=== PATIENT | male | born 1960 | race Caucasian/White ===

== ENCOUNTER → 2021-11-09 10:48 | Outpatient (CLI) | payer OTHER, SELFPAY ==
--- NOTE | 2021-11-09 10:50 | DI.RAD.S_ITS ---
PROCEDURE: XR KUB INDICATIONS: Elevated PSA TECHNIQUE: One view of the abdomen acquired. COMPARISON: None. FINDINGS: Surgical changes and devices: None. Bowel: Bowel gas pattern is normal. Soft tissues: No suspicious abdominal calcifications. Visualized solid organ contours appear normal in size. Bones: No suspicious bony lesions. IMPRESSION: No acute process identified within the visualized portions of the abdomen and pelvis. Dictated by: Sreekanth Boyd [facility] Interpreted: Brett Nuno MD on 11/09/2021 at 11:04 Transcribed by: [facility] on 11/09/2021 at 11:05 Approved by: Brett Nuno M.D. on 11/09/2021 at 11:47
== END ==
PROVIDERS: Referring Provider Specialist; Visit Provider Specialist
DX: R97.20 Elevated prostate specific antigen [PSA] (principal)
CPT/HCPCS: 36415; 74018; G0103

== ENCOUNTER → 2022-01-13 08:59 | Outpatient (CLI) | payer OTHER, SELFPAY ==
[2022-01-13 10:03] LABS: Prostate Specific Antigen 2.53 ng/mL (0.10-4.00)
== END ==
PROVIDERS: PCP Family Medicine; Referring Provider Specialist; Visit Provider Specialist
DX: R97.20 Elevated prostate specific antigen [PSA] (principal)
CPT/HCPCS: 36415; 84153

== ENCOUNTER → 2023-02-01 13:22 | Outpatient (CLI) | payer OTHER, SELFPAY | PROVIDERS: PCP Family Medicine; Referring Provider Specialist; Visit Provider Specialist | DX: R97.20 Elevated prostate specific antigen [PSA] (principal) | CPT/HCPCS: 36415; 84153 ==

== ENCOUNTER → 2023-04-17 15:11 | Outpatient (CLI) | payer OTHER, SELFPAY ==
[2023-04-17 16:48] LABS: Prostate Specific Antigen 4.36 ng/mL (0.10-4.00)
== END ==
PROVIDERS: Referring Provider Specialist; Visit Provider Specialist
DX: R97.20 Elevated prostate specific antigen [PSA] (principal)
CPT/HCPCS: 36415; 84153

== ENCOUNTER → 2023-05-07 13:09 | Outpatient (CLI) | payer OTHER, SELFPAY ==
[2023-05-07 14:55] LABS: BUN Creatinine Ratio 14.3 (6-22); Blood Urea Nitrogen 15 mg/dL (9-20); Calcium 9.3 mg/dL (8.4-10.2); Carbon Dioxide 24 mmol/L (22-32); Chloride 106 mmol/L (98-107); Estimated Glomerular Filt Rate > 60 mL/min (>60); Glucose 99 mg/dL (80-110); HEMOLYSIS < 15 (0-50); Potassium 4.6 mmol/L (3.4-5.1); Sodium 139 mmol/L (137-145)
[2023-05-10 16:51] LABS: PSA Free % 12.5 % (.); PSA, Total 2.8 ng/mL (0.0-4.0)
== END ==
PROVIDERS: Referring Provider Specialist; Visit Provider Specialist
DX: Z01.812 Encounter for preprocedural laboratory examination (principal); R97.20 Elevated prostate specific antigen [PSA]
CPT/HCPCS: 36415; 80048; 84153; 84154

== ENCOUNTER → 2023-05-14 08:40 | Outpatient (CLI) | payer OTHER, SELFPAY ==
--- NOTE | 2023-05-14 08:41 | DI.MRI.S_ITS ---
PROCEDURE: MR PELVIS WO/W CON INDICATIONS: elevated PSA TECHNIQUE: Coronal HASTE, axial T1 FSE with fat saturation, 3-plane nonbreath-hold T2 FSE. After the administration of contrast, dynamic axial, delayed axial and coronal VIBE or 2-D FLASH with fat saturation through the pelvis. Optional diffusion weighted imaging and ADC may be performed. COMPARISON: [facility], CT, CT IVP, 01/30/2022, 15:07. FINDINGS: Image quality: Diffusion weighted images are degraded at the anterior gland however evaluation of the peripheral zone appears diagnostic. Prostate: Gland size is 5.6 x 4.0 x 5.2 cm; ellipsoid gland volume is 61 mL. Mild linear and wedge-shaped ADC hypointensities present within the prostate peripheral zone with indistinct T2 correlates (PI-RADS 2 findings). Enlargement of the prostate transitional zone with findings typical of benign prostatic hyperplasia. No large lesion strongly stands out against background parenchymal changes of BPH on T2 weighted images (PI-RADS 2 findings). Genitourinary system: Bladder wall thickness is normal. Distal ureters are non distended. Bowel and peritoneum: No significant free pelvic fluid. Inferior colon and small bowel loops are normal in caliber. Nodes and vessels: No pelvic or inguinal adenopathy by size criteria. Iliac vessels are normal in caliber. Bones: Marrow demonstrates unremarkable overall signal, without lesions to suggest metastases. IMPRESSION: 1. No large or highly suspicious focal prostate lesion to direct biopsy. There is enlargement of the prostate transitional zone with findings typical of benign prostatic hyperplasia, with prostate volume estimated at 61 cc. 2. No suspicious lymph nodes identified in the imaged pelvis. Dictated by: Leo Gomez M.D. on 05/14/2023 at 13:50 Approved by: Leo Gomez M.D. on 05/14/2023 at 14:05
== END ==
PROVIDERS: PCP Family Medicine; Referring Provider Specialist; Visit Provider Specialist
DX: R97.20 Elevated prostate specific antigen [PSA] (principal)
CPT/HCPCS: 72197; A9579

== ENCOUNTER → 2024-01-30 08:04 | Outpatient (CLI) | payer MEDICARE, OTHER, SELFPAY ==
[2024-01-30 09:55] LABS: Add Manual Diff / Slide Review NO; Basophils Absolute Auto 0 /uL (0-100); Basophils Percent Auto 0.5 % (0-2); Eosinophils Absolute Auto 100 /uL (0-450); Eosinophils Percent Auto 0.8 % (2-4); Hematocrit 40.7 % (41-53); Hemoglobin 14.3 g/dL (13.5-17.5); Lymphocytes Absolute Auto 2100 /uL (1100-4500); Lymphocytes Percent Auto 26.1 % (25-40); Mean Corpuscular HGB Conc 35.2 % (30-36); Mean Corpuscular Hemoglobin 30.3 PG (26-34); Mean Corpuscular Volume 86.1 fL (80-100); Monocytes Absolute Auto 400 /uL (0-900); Monocytes Percent Auto 4.6 % (3-14); Neutrophils Absolute Auto 5400 /uL (1500-7000); Platelet Count 182 X10^3/uL (150-400); Red Blood Cell Count 4.72 X10^6/uL (4.5-5.9); Red Cell Distribution Width 13.2 % (11.6-14.8)
[2024-01-30 10:19] LABS: Alanine Aminotransferase 34 IU/L (<50); Albumin 4.2 g/dL (3.5-5.0); Albumin Globulin Ratio 1.4 (1.0-2.8); Alkaline Phosphatase 58 U/L (38-126); Aspartate Aminotransferase 27 IU/L (17-59); BUN Creatinine Ratio 13.5 (6-22); Bilirubin Total 0.7 mg/dL (0.2-1.3); Blood Urea Nitrogen 12 mg/dL (9-20); Carbon Dioxide 26 mmol/L (22-32); Chloride 107 mmol/L (98-107); Estimated Glomerular Filt Rate > 60 mL/min (>60); Globulin 2.9 g/dL (1.7-4.1); Glucose 141 mg/dL (80-110); HEMOLYSIS < 15 (0-50); Potassium 4.1 mmol/L (3.4-5.1); Sodium 141 mmol/L (137-145); Total Protein 7.1 g/dL (6.3-8.2)
[2024-01-30 10:43] LABS: Prostate Specific Antigen 2.99 ng/mL (0.10-4.00)
[2024-01-30 10:45] LABS: TSH w/ Reflex to FT4 2.07 uIU/mL (0.47-4.68)
== END ==
PROVIDERS: PCP Family Medicine; Referring Provider Specialist; Visit Provider Specialist
DX: N40.1 Benign prostatic hyperplasia with lower urinary tract symptoms (principal); G25.0 Essential tremor; R55 Syncope and collapse; N13.8 Other obstructive and reflux uropathy; R31.29 Other microscopic hematuria
CPT/HCPCS: 36415; 80053; 84153; 84443; 85025

== ENCOUNTER 2024-02-20 14:28 | Emergency (ER) | payer OTHER, SELFPAY ==
[2024-02-20 14:40] VITALS: BP 139/66; PULSE 60; RESP 16; TEMP 36.5; O2SAT 100; BMI 27.8
--- NOTE | 2024-02-20 14:55 | ED_ITS ---
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 Bleeding was controlled with a Band-Aid. He has already spoken with employee health here at the hospital and they are getting labs drawn from the source patient. He does not desire any post exposure prophylaxis. He feels comfortable returning to work today. Source Patient MR Gunderson [id number]. Kenji Alvarez 02/20/2024. Related Data Home Medications Medication Instructions Recorded Confirmed atorvastatin 20 mg tablet 20 mg PO BEDTIME 11/08/21 02/07/24 dexlansoprazole 30 mg 30 mg PO DAILY 11/08/21 02/07/24 capsule,biphase delayed release (Dexilant) primidone 150 mg PO BEDTIME 11/08/21 02/07/24 Previous Rx's Medication Instructions Recorded tadalafil 5 mg tablet (Cialis) 5 mg PO DAILY PRN sexual activity 02/07/23 #60 tabs tamsulosin 0.4 mg capsule 0.8 mg (2 x 0.4 mg) PO BEDTIME 02/07/23 #180 caps Allergies Allergy/AdvReac Type Severity Reaction Status Date / Time Sulfa (Sulfonamide Allergy Verified 05/24/23 07:48 Antibiotics) Review of Systems <Nicole Kyle PA-C - Last Filed: 02/20/24 19:46> Review of Systems Narrative: See HPI Patient History <Nicole Kyle PA-C - Last Filed: 02/20/24 19:46> Medical History History of elevated PSA Microscopic hematuria BPH w urinary obs/LUTS Prostatitis Encounter for standard circumcision Squamous cell skin cancer Scarlet fever Essential tremor 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 Cervical radiculopathy Diverticulosis Hypertriglyceridemia Erosive esophagitis GERD (gastroesophageal reflux disease) Erectile dysfunction Prediabetes Hyperlipidemia Surgical History Hx of tonsillectomy H/O inguinal hernia repair Family History Mother Cataract Dementia Depression Hypertension Mitral valve prolapse Father Hypertension Coronary artery disease Social History marital status: unmarried,single 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 Well-developed patient, in mild distress. HEAD: Atraumatic. Normocephalic. EYES: Pupils equal round and reactive. Extraocular motions intact. No scleral icterus. No injection or drainage. ENT: Nose without bleeding, purulent drainage. Airway patent. NECK: Trachea midline. Non tender CARDIOVASCULAR: Regular rate and rhythm RESPIRATORY: No increased work of breathing or respiratory distress EXTREMITIES: On the pad of the right index finger there is a small stellate laceration that is superficial proximally 4 mm in size with bleeding controlled. Range of motion of the affected finger is intact. Moving all extremities, normal gait NEURO: AOx3. SKIN: No rash or erythema of visible areas Initial Vital Signs Initial Vital Signs: Vital Signs Temperature 97.7 F 02/20/24 14:40 Pulse Rate 60 02/20/24 14:40 Respiratory Rate 16 02/20/24 14:40 Blood Pressure 139/66 02/20/24 14:40 Pulse Oximetry 100 02/20/24 14:40 Oxygen Delivery Method Room Air 02/20/24 14:40 <Shyla Collado MD - Last Filed: 02/22/24 20:35> Initial Vital Signs Initial Vital Signs: Vital Signs Temperature 97.7 F 02/20/24 14:40 Pulse Rate 60 02/20/24 14:40 Respiratory Rate 16 02/20/24 14:40 Blood Pressure 139/66 02/20/24 14:40 Pulse Oximetry 100 02/20/24 14:40 Oxygen Delivery Method Room Air 02/20/24 14:40 Course <Nicole Kyle PA-C - Last Filed: 02/20/24 19:46> Orders Ordered: ED Orders 02/20/24 15:20 Alanine Aminotransferase Stat HIV 1 & 2 Ab/Ag 4th Gen Combo Stat Hep C Virus Ab w/Reflex Quant Stat Vital Signs Vital signs: Vital Signs - 8 hr 02/20/24 14:40 Temperature 97.7 F Pulse Rate 60 Respiratory Rate 16 Blood Pressure 139/66 Pulse Oximetry 100 Oxygen Delivery Method Room Air <Shyla Collado MD - Last Filed: 02/22/24 20:35> Orders Ordered: ED Orders 02/20/24 15:20 Alanine Aminotransferase Stat HIV 1 & 2 Ab/Ag 4th Gen Combo Stat Hep C Virus Ab w/Reflex Quant Stat Vital Signs Vital signs: Vital Signs - 8 hr 02/20/24 14:40 Temperature 97.7 F Pulse Rate 60 Respiratory Rate 16 Blood Pressure 139/66 Pulse Oximetry 100 Oxygen Delivery Method Room Air Medical Decision Making <Nicole Kyle PA-C - Last Filed: 02/20/24 19:46> Differential Diagnosis Differential Diagnosis: Exposure to body fluids, work injury, sharp/needlestick injury Medical Records Medical records reviewed: Yes I reviewed the patient's medical records. Lab Data Lab results reviewed: Yes I reviewed the patient's lab results. 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 Source labs being drawn from source patient as ordered by [facility] and patient has already discussed this situation with them. Source labs drawn from the patient today in the emergency department, he does not desire post exposure prophylaxis. The wound is not something that require sutures, bleeding is controlled with direct pressure/Band-Aid. Patient prefers to return to work today as he has multiple additional cases. I do not feel that this injury will prohibit him from performing his regular duties and he is released to return to work. L and I paperwork [id number]. Patient will follow with the [facility] for additional lab draws/care as needed. Return precautions provided, follow-up plan discussed, all questions answered. <Shyla Collado MD - Last Filed: 02/22/24 20:35> Lab Data Labs: Lab Results 02/20/24 02/20/24 Range/Units 14:42 15:20 ALT 25 (<50) IU/L Hep Bs Antibody Reactive (.) Hepatitis C Antibody Negative (NEGATIVE) s/c HIV 1&2 Ab/P24 Ag 4thGn Negative (NEGATIVE) Discharge Plan Departure Patient Disposition: Home Clinical Impression: Accidental needlestick injury with exposure to body fluid, Needle stick injury of finger, Work related injury Activity Restrictions/Additional Instructions: *You have been diagnosed with [Accidental needle stick/sharp stick injury with exposure to body fluid/ work-related injury ] *What to do: *Please continue to take your regular medications as directed. [ ] New medication prescriptions sent to your pharmacy: [ ] [ ] New medication written as a paper prescription [X ] No new medications given *Please follow up with your primary care provider in 2-3 days, call for an appointment. Let them know you were seen in the Emergency Department and that we ask that you be seen in follow up. We will electronically transmit a record of today's note if your PCP is in our system. You had a blood draw today in the emergency department to assess for current hepatitis B/C and HIV Testing, you will need follow-up testing for these of course and will need to work with [facility] on this over the next few weeks to months. We did provide you with the option for post exposure prophylaxis today and you have declined this. I have completed [id number]. I am really seeing you back to work today, definitely wear a Band-Aid over the small wound on your finger and keep the area covered with a glove at all times while working. You may want to consider double gloving. Monitor for any signs of infection. [id number] was completed during your ER visit. *If you do not have a primary care provider please contact the [facility] Resource line at [phone]. They will ask some questions about your medical history and help get you set up with a doctor in the community. *Return to Emergency Department if you should have any new, worsening or concerning symptoms, such as [fever greater than 101 F, shaking chills, worsening pain, persistent vomiting or other bothersome symptoms] Prescriptions: No Action Dexilant 30 mg capsule,biphase delayed releas 30 mg PO DAILY primidone 150 mg PO BEDTIME atorvastatin 20 mg tablet 20 mg PO BEDTIME tamsulosin 0.4 mg capsule 0.8 mg PO BEDTIME Qty: 180 3RF tadalafil [Cialis] 5 mg tablet 5 mg PO DAILY PRN (Reason: sexual activity) Qty: 60 2RF Rx Instructions: Take 1-4 tablets p.o. q.day 1 hour before intercourse as needed. Referrals: Margot Jones MD [Primary Care Provider] - Stand Alone Forms: Patient Portal/API ED Sign-out <Shyla Collado MD - Last Filed: 02/22/24 20:35> Cosign ED Attending Cosignature Attestation: I did not see this patient. I was available all times for consultation.
[2024-02-20 16:03] LABS: Alanine Aminotransferase 25 IU/L (<50)
[2024-02-20 16:57] LABS: HIV 1 & 2 Ab/Ag 4th Gen Combo NEGATIVE (NEGATIVE); Hep C Virus Ab w/Reflex Quant NEGATIVE s/c (NEGATIVE)
[2024-02-22 07:38] LABS: Hepatitis B Surf Ab Qualitativ Reactive (.)
== END 2024-02-20 15:31 | disposition home or self-care (01) ==
PROVIDERS: Emergency Provider Student in an Organized Health Care Education/Training Program; PCP Family Medicine
DX: Z77.21 Contact with and (suspected) exposure to potentially hazardous body fluids (principal); W46.1XXA Contact with contaminated hypodermic needle, initial encounter; Y99.0 Civilian activity done for income or pay
CPT/HCPCS: 84460; 86706; 86803; 87389; 99281; 99283

== ENCOUNTER → 2024-08-22 17:55 | Outpatient (CLI) | payer MEDICARE, OTHER, SELFPAY | PROVIDERS: PCP Family Medicine; Referring Provider Internal Medicine; Visit Provider Internal Medicine | DX: Z23 Encounter for immunization (principal) | CPT/HCPCS: 90471; 90662 ==

== ENCOUNTER → 2025-01-20 13:09 | Outpatient (CLI) | payer MEDICARE, OTHER, SELFPAY ==
[2025-01-20 14:01] LABS: Prostate Specific Antigen 1.89 ng/mL (0.10-4.00)
== END ==
PROVIDERS: PCP Family Medicine; Referring Provider Urology; Visit Provider Urology
DX: N40.1 Benign prostatic hyperplasia with lower urinary tract symptoms (principal); Z87.898 Personal history of other specified conditions; N13.8 Other obstructive and reflux uropathy
CPT/HCPCS: 36415; 84153